=== PATIENT | male | born 1975 | race Caucasian/White ===

== ENCOUNTER 2017-08-09 09:36 | Inpatient (IN) ==
[2017-08-09] MEDS ORDERED: DILTIAZEM 50 MG/10 ML VIAL IV STA ×3 (10:05→11:03)
[2017-08-09] MEDS ORDERED: SODIUM CHLORIDE 0.9% 1,000 ML IV STA (10:05)
[2017-08-09] MEDS ORDERED: ONDANSETRON 4 MG/2 ML VIAL IV STA (10:08)
[2017-08-09] MEDS ORDERED: DILTIAZEM 50 MG/10 ML VIAL IV ONE (10:08)
[2017-08-09] MEDS ORDERED: ONDANSETRON 4 MG/2 ML VIAL ONE (10:08)
[2017-08-09 10:15] LABS: Basophils % 0.2 % (0.0-0.8); Eosinophils % 0.1 % (0.00-10.9); Hematocrit 54.5 VOL% (42.0-52.0); Immature Granulocytes % 0.5 %; Immature Granulocytes Absolute 0.08 #; Lymphocytes # 0.4 10*3/uL (1.4-4.0); Lymphocytes % 2.7 % (21.2-54.2); Mean Corpuscular Hemoglobin 30 PG (27-34); Mean Corpuscular Volume 92.1 FL (87-102); Monocytes # 0.9 10*3/uL (0.11-0.8); Monocytes % 5.3 % (1.7-12.7); Neutrophils # 14.5 10*3/uL (1.4-7.4); Neutrophils % 91.2 % (38.7-73.9); Platelet Count 244 T/CUMM (130-400); Red Blood Count 5.92 MC/CUMM (3.8-5.5); Red Cell Distribution Width 11.9 % (9.3-17.3); White Blood Count 15.9 T/CUMM (4-12)
[2017-08-09] MEDS ORDERED: DILTIAZEM 100 MG VIAL.ADD IV ONE (10:16)
[2017-08-09 10:24] LABS: INR 1.1; PT Patient Result 11.6 SECS; Partial Thromboplastin Time 25.2 SECS (0-40)
[2017-08-09] MEDS: DILTIAZEM INJ 100 MG in SODIUM CHLORIDE 0.9% 100 ML IV SCH (10:25)
[2017-08-09 10:34] LABS: Band Neutrophils 2 % (0-10); Lymphocytes 8 % (20-55); Segmented Neutrophils 86 % (50-85); Total Cells Counted 100
[2017-08-09 10:35] LABS: Platelet Estimate Normal
[2017-08-09 10:52] LABS: Alanine Aminotransferase 40 U/L (16-61); Albumin 4.1 G/DL (3.4-5.0); Alkaline Phosphatase 56 U/L (45-117); Aspartate Amino Transferase 29 U/L (0-37); Blood Urea Nitrogen 16 MG/DL (7-18); Calcium 9.2 MG/DL (8.5-10.1); Glucose 118 MG/DL (74-106); Osmolality,Calculated 278.5 MOS/KG (273-304); Potassium 4.6 MMOL/L (3.5-5.1); Sodium 139 MMOL/L (136-145); Thyroid Stimulating Hormone 0.906 uIU/ml (0.358-3.74); Total Protein 7.7 G/DL (6.4-8.3); Troponin I Only < 0.015 NG/ML (0.00-0.045)
[2017-08-09 12:44] LABS: Barbiturates Screen,Urine Negative (Negative); Benzodiazepines Screen,Urine Negative (Negative); Cannabinoid Screen,Urine Negative (Negative); Opiate Screen,Urine Negative (Negative); Phencyclidine Screen,Urine Negative (Negative)
[2017-08-09] MEDS ORDERED: MAGNESIUM SULF RIDER 4 GM in PREMIX 1 EACH IV PRN (12:50)
[2017-08-09] MEDS ORDERED: MAGNESIUM SULF RIDER 2 GM in PREMIX 1 EACH IV PRN (12:50)
[2017-08-09] MEDS: DEXTROSE 5% NACL 0.45% 1,000 ML IV SCH (13:04)
[2017-08-09] MEDS: METOPROLOL TARTRATE 50 MG TABLET PO SCH ×2 (13:05→21:02)
[2017-08-09] MEDS ORDERED: ONDANSETRON 4 MG/2 ML VIAL IV PRN (14:08)
[2017-08-09] MEDS: ACETAMINOPHEN 325 MG TABLET PO PRN (16:25)
[2017-08-09] MEDS ORDERED: ENOXAPARIN 40 MG/0.4 ML SYRINGE SUBCUT SCH (21:00)
[2017-08-10 06:01] LABS: Basophils % 0.2 % (0.0-0.8); Eosinophils % 0.5 % (0.00-10.9); Hematocrit 50.3 VOL% (42.0-52.0); Hemoglobin 16.4 GM/DL (14.0-18.0); Immature Granulocytes % 0.4 %; Immature Granulocytes Absolute 0.03 #; Lymphocytes # 1.1 10*3/uL (1.4-4.0); Lymphocytes % 13.3 % (21.2-54.2); Mean Corpuscular HGB Conc 32.6 GM/DL (32-36); Mean Corpuscular Hemoglobin 30 PG (27-34); Mean Corpuscular Volume 92.6 FL (87-102); Mean Platelet Volume 9.4 FL (9.6-12.0); Monocytes # 1.2 10*3/uL (0.11-0.8); Monocytes % 13.6 % (1.7-12.7); Neutrophils # 6.1 10*3/uL (1.4-7.4); Platelet Count 191 T/CUMM (130-400); Red Blood Count 5.43 MC/CUMM (3.8-5.5); Red Cell Distribution Width 11.9 % (9.3-17.3); White Blood Count 8.5 T/CUMM (4-12)
[2017-08-10 06:31] LABS: Bilirubin,Total 0.8 MG/DL (0.2-1.0); Calcium 7.6 MG/DL (8.5-10.1); Magnesium 1.8 MG/DL (1.8-2.4); Osmolality,Calculated 282.1 MOS/KG (273-304); Potassium 4.3 MMOL/L (3.5-5.1); Total Protein 6.4 G/DL (6.4-8.3)
[2017-08-10] MEDS: METOPROLOL TARTRATE 50 MG TABLET PO SCH ×2 (10:08→21:03)
[2017-08-10] MEDS: DEXTROSE 5% NACL 0.45% 1,000 ML IV SCH (10:09)
[2017-08-10] MEDS: DILTIAZEM INJ 100 MG in SODIUM CHLORIDE 0.9% 100 ML IV SCH (10:10)
[2017-08-10] MEDS: ENOXAPARIN 120 MG/0.8 ML SYRINGE SUBCUT SCH ×2 (10:13→22:52)
[2017-08-10] MEDS: ACETAMINOPHEN 325 MG TABLET PO PRN (22:50)
[2017-08-11] MEDS ORDERED: fentaNYL 100 MCG/2 ML VIAL ONE (06:27)
[2017-08-11] MEDS ORDERED: PROPOFOL 200 MG/20 ML VIAL IV ONE (06:27)
[2017-08-11] MEDS ORDERED: MIDAZOLAM 2 MG/2 ML VIAL ONE (06:28)
[2017-08-11] MEDS: METOPROLOL TARTRATE 50 MG TABLET PO SCH (09:18)
[2017-08-11] MEDS ORDERED: ASPIRIN EC 81 MG TABLET PO SCH (10:30)
[2017-08-11 11:42] VITALS: BP 133/86
[2017-08-11] MEDS ORDERED: METOPROLOL SUCCINATE XL 50 MG TABLET PO SCH (21:00)
== END 2017-08-11 12:11 | disposition home or self-care (01) | DRG 310 ==
LOC: N.ED 09:36 → N.EDINP 11:21 → N.TELES 12:01
PROVIDERS: ADMIT Internal Medicine Interventional Cardiology; ATTEND Internal Medicine Clinical Cardiac Electrophysiology

== ENCOUNTER 2019-02-15 17:09 | Observation (INO) ==
[2019-02-15] MEDS ORDERED: ONDANSETRON 4 MG/2 ML VIAL IV PRN (19:53)
[2019-02-15] MEDS: ACETAMINOPHEN 325 MG TABLET PO PRN (20:20)
[2019-02-15] MEDS: LOSARTAN 50 MG TABLET PO SCH (20:22)
[2019-02-15] MEDS: SODIUM CHLORIDE 0.9% 1,000 ML IV SCH (22:00)
[2019-02-16 05:41] LABS: Basophils % 0.3 % (0.0-0.8); Eosinophils % 0.3 % (0.00-10.9); Hematocrit 46.7 VOL% (42.0-52.0); Hemoglobin 15.2 GM/DL (14.0-18.0); Immature Granulocytes % 0.5 %; Immature Granulocytes Absolute 0.03 #; Lymphocytes % 15.8 % (21.2-54.2); Mean Corpuscular HGB Conc 32.5 GM/DL (32-36); Mean Corpuscular Volume 93.8 FL (87-102); Monocytes % 10.9 % (1.7-12.7); Neutrophils % 72.2 % (38.7-73.9); Platelet Count 159 T/CUMM (130-400); Red Blood Count 4.98 MC/CUMM (3.8-5.5); Red Cell Distribution Width 14.1 % (9.3-17.3); White Blood Count 6.3 T/CUMM (4-12)
[2019-02-16 06:14] LABS: Albumin 3.2 G/DL (3.4-5.0); Bilirubin,Total 0.9 MG/DL (0.2-1.0); Calcium 8.4 MG/DL (8.5-10.1); Osmolality,Calculated 277.5 MOS/KG (273-304); Total Protein 6.4 G/DL (6.4-8.3)
[2019-02-16 06:32] LABS: Risk Ratio 5.93; VLDL CHOLESTEROL 19.6 MG/DL
[2019-02-16] MEDS: SODIUM CHLORIDE 0.9% 1,000 ML IV SCH ×3 (06:56→22:16)
[2019-02-16] MEDS ORDERED: METOPROLOL SUCCINATE XL 50 MG TABLET PO SCH (09:00)
[2019-02-16] MEDS ORDERED: ASPIRIN EC 81 MG TABLET PO SCH (09:00)
[2019-02-16] MEDS ORDERED: PANTOPRAZOLE 40 MG TABLET PO SCH ×2 (09:00)
[2019-02-16] MEDS: ACETAMINOPHEN 325 MG TABLET PO PRN (09:02)
[2019-02-16] MEDS ORDERED: ASPIRIN CHEW 81 MG TABLET PO SCH ×2 (13:45→21:00)
[2019-02-16] MEDS ORDERED: OMEPRAZOLE DR 40 MG CAPSULE PO SCH ×2 (14:30→21:00)
[2019-02-16] MEDS: MULTIVITAMIN (CENTRUM) TABLET PO SCH ×2 (15:13→15:20)
[2019-02-16] MEDS: ENOXAPARIN 40 MG/0.4 ML SYRINGE SUBCUT SCH (15:28)
[2019-02-16] MEDS: LOSARTAN 50 MG TABLET PO SCH ×3 (15:29→21:39)
[2019-02-16] MEDS: METOPROLOL SUCCINATE XL 50 MG TABLET PO SCH ×2 (15:29→21:40)
[2019-02-17] MEDS: SODIUM CHLORIDE 0.9% 1,000 ML IV SCH (06:20)
[2019-02-17] MEDS: MULTIVITAMIN (CENTRUM) TABLET PO SCH (08:59)
[2019-02-17] MEDS: LOSARTAN 50 MG TABLET PO SCH (09:00)
[2019-02-17] MEDS: METOPROLOL SUCCINATE XL 50 MG TABLET PO SCH (09:01)
[2019-02-17] MEDS: ENOXAPARIN 40 MG/0.4 ML SYRINGE SUBCUT SCH (09:01)
[2019-02-17] MEDS ORDERED: LIDOCAINE 1%/EPI INJ 20 ML VIAL ONE (09:10)
[2019-02-17] MEDS ORDERED: TISSUE ADHESIVE 1 EACH APPLICATOR TOP ONE (09:10)
[2019-02-17 14:45] VITALS: BP 137/84
== END 2019-02-17 15:45 | disposition home or self-care (01) ==
LOC: N.TELEN → SUATTDRO 18:59
PROVIDERS: ADMIT Internal Medicine; ATTEND Internal Medicine Nephrology